=== PATIENT | female | born 1965 | race Native Hawaiian/Other Pacific Islander ===

== ENCOUNTER 2017-08-04 08:12 | Emergency (ER) | payer OTHER ==
[2017-08-04 08:29] VITALS: BP 141/92
[2017-08-04] MEDS ORDERED: DEXAMETHASONE 10 MG/ML VIAL PO STA (10:10)
--- NOTE | 2017-08-04 10:12 | ED Physician Documentation ---
PD HPI HEADACHE - Stated complaint Stated Complaint: MIGRAINE/NEW MED - Chief complaint Chief Complaint: General - History obtained from History obtained from: Patient, Family - History of Present Illness Timing - onset: Today Timing - onset during: Rest Timing - duration: Hours Timing - details: Gradual onset, Still present Worst headache ever?: No: Worst headache ever? Location: Left Quality: Throbbing Associated symptoms: Stiff neck. No: Fever, Nausea, Vomiting, Weakness, Numbness, Syncope, Seizure, Eye pain, Vision changes Improved by: Rest, Dark room, Meds Worsened by: Light, Noise, Moving Contributing factors: No: Anticoagulated Similar symptoms before: Diagnosis (migraine) Recently seen: Clinic - Additional information Additional information: 51-year-old female with a history of migraines has had more frequent migraines over the past month. She went into see her primary care doctor with concerns about her blood pressure and wondering if this may be an issue with why her headaches are more frequent. She did have blood pressures elevated in the 140 range and was started on lisinopril 5 mg daily. She took one dose last night and a second dose this morning. She developed worsening of her headache this morning has come to the emergency department afraid to take her Maxalt. Review of Systems Constitutional: denies: Fever Eyes: reports: Photophobia. denies: Decreased vision Ears: denies: Ear pain Nose: denies: Rhinorrhea / runny nose, Congestion Throat: denies: Sore throat Cardiac: denies: Chest pain / pressure, Palpitations Respiratory: denies: Dyspnea, Cough GI: reports: Nausea. denies: Abdominal Pain, Vomiting : denies: Dysuria, Frequency Musculoskeletal: reports: Neck pain. denies: Back pain Neurologic: reports: Headache. denies: Generalized weakness, Focal weakness, Numbness, Head injury, LOC PD PAST MEDICAL HISTORY - Past Medical History Cardiovascular: Hypertension Respiratory: None Neuro: Headache/migraine Endocrine/Autoimmune: None GI: None HEENT: None Psych: None Musculoskeletal: None Derm: None - Present Medications Home Medications: Ambulatory Orders Medication Instructions Recorded Confirmed Lisinopril 1 tab PO DAILY 08/04/17 08/04/17 Rizatriptan Benzoate [Rizatriptan] 08/04/17 - Allergies Allergies/Adverse Reactions: Allergies Allergy/AdvReac Type Severity Reaction Status Date / Time No Known Drug Allergies Allergy Verified 08/04/17 08:29 - Social History Does the pt smoke?: No Smoking Status: Never smoker Does the pt drink ETOH?: Yes Does the pt have substance abuse?: No - Immunizations Immunizations are current?: Yes - POLST Patient has POLST: No PD ED PE NORMAL - Vitals Vital signs reviewed: Yes (hypertensive) - General General: No acute distress, Well developed/nourished - HEENT HEENT: Atraumatic, PERRL, EOMI, Ears normal, Moist mucous membranes, Pharynx benign, Dentition benign - Neck Neck: Supple, no meningeal sign, No bony TTP, Other (There is tenderness to the insertion of the trapezius to the occiput. ) - Cardiac Cardiac: RRR, No murmur - Respiratory Respiratory: No respiratory distress, Clear bilaterally - Abdomen Abdomen: Soft, Non tender - Back Back: No CVA TTP, No spinal TTP - Derm Derm: Normal color, Warm and dry, No rash - Extremities Extremities: No deformity, No edema - Neuro Neuro: No motor deficit, No sensory deficit - Psych Psych: Normal mood, Normal affect Results - Vitals Vitals: Vital Signs - 24 hr 08/04/17 08:26 Temperature 36.0 C L Heart Rate 79 Respiratory 16 Rate Blood Pressure 141/92 H O2 Saturation 100 Oxygen O2 Source Room air PD MEDICAL DECISION MAKING - ED course Complexity details: reviewed results, re-evaluated patient, considered differential, d/w patient ED course: 51-year-old female with history of migraine headaches as a migraine again today she has been having more frequent migraines And has started medication for blood pressure. It appears she does not tolerate this medicine as it appeared to trigger a headache. Here in the emergency department she is given her Maxalt and a dose of dexamethasone. I have encouraged the patient to try all measures to improve her blood pressure without medication. Departure - Departure Disposition: 01 Home, Self Care Clinical Impression: Migraine Qualifiers: Migraine type: with aura Status migrainosus presence: with status migrainosus Intractability: not intractable Qualified Code(s): G43.101 - Migraine with aura , not intractable, with status migrainosus Condition: Stable Instructions: ED Headache Migraine Follow-Up: KARINE LARKIN [Primary Care Provider] - Comments: It is okay today to discontinue the use of the lisinopril. Follow-up with your primary care doctor about further control of your blood pressure. Forms: Activity restrictions
[2017-08-04] MEDS ORDERED: DEXAMETHASONE 10 MG/ML VIAL ONE (10:20)
[2017-08-04] MEDS ORDERED: CHERRY SYRUP 10 ML UDC PO ONE (10:21)
== END 2017-08-04 11:03 | disposition home or self-care (01) ==
LOC: ED 08:12
DX: G43.101 Migraine with aura, not intractable, with status migrainosus (principal); I10 Essential (primary) hypertension
CPT/HCPCS: 99283; 99284; A9270

== ENCOUNTER 2018-02-22 15:28 | Emergency (ER) | payer OTHER ==
[2018-02-22 15:34] VITALS: BP 144/70
--- NOTE | 2018-02-22 16:57 | ED Physician Documentation ---
PD HPI HEADACHE - Stated complaint Stated Complaint: H/A,EYE REDNESS - Chief complaint Chief Complaint: Neuro - History obtained from History obtained from: Patient - History of Present Illness Timing - onset: Today (onset this morning of left sided headache. [place] similar to migraine type ones she gets occasionally. Washed her face and when looked up in mirror, noted redness of the left eye. Concerned for other cause for headache. Tried to see PCP but could not get appt.) Timing - onset during: Sleep, Rest Timing - details: Abrupt onset, Still present Worst headache ever?: No: Worst headache ever? (feeling similar to migraines she gets, but had not had blood in eye related to it before.) Location: Left Quality: Throbbing, Aching Associated symptoms: No: Fever, Stiff neck, Nausea, Vomiting Contributing factors: No: Anticoagulated, Hypertension, Recent illness Review of Systems Constitutional: denies: Fever, Chills, Myalgias Eyes: reports: Photophobia. denies: Loss of vision, Decreased vision Ears: denies: Ear pain Nose: denies: Rhinorrhea / runny nose, Congestion Throat: denies: Sore throat Cardiac: denies: Chest pain / pressure, Palpitations Respiratory: denies: Dyspnea, Cough GI: denies: Nausea, Vomiting, Diarrhea Skin: denies: Rash, Lesions PD PAST MEDICAL HISTORY - Past Medical History Cardiovascular: Hypertension Respiratory: None Neuro: Headache/migraine Endocrine/Autoimmune: None GI: None HEENT: None Psych: None Musculoskeletal: None Derm: None - Present Medications Home Medications: Ambulatory Orders Medication Instructions Recorded Confirmed No Known Home Medications [No 02/22/18 02/22/18 Known Home Medications] - Allergies Allergies/Adverse Reactions: Allergies Allergy/AdvReac Type Severity Reaction Status Date / Time lisinopril Allergy Unknown Verified 02/22/18 15:35 - Social History Does the pt smoke?: No Smoking Status: Never smoker Does the pt drink ETOH?: Yes Does the pt have substance abuse?: No - Immunizations Immunizations are current?: Yes - POLST Patient has POLST: No PD ED PE NORMAL - Vitals Vital signs reviewed: Yes - General General: Alert and oriented X 3, Well developed/nourished - HEENT HEENT: Atraumatic, PERRL, EOMI, Ears normal, Moist mucous membranes, Pharynx benign - Neck Neck: Supple, no meningeal sign, No adenopathy - Respiratory Respiratory: No respiratory distress, Clear bilaterally - Abdomen Abdomen: Soft, Non tender - Back Back: No CVA TTP - Derm Derm: Normal color, Warm and dry, No rash - Extremities Extremities: No tenderness to palpate, Normal ROM s pain, No edema, No calf tenderness / cord - Neuro Neuro: Alert and oriented X 3, autocad designer 2-12 intact, No motor deficit, No sensory deficit, Normal speech, Other PD ED PE EXPANDED - Eyes Eyes: Subconj hemorrhage (small one), Anterior chambers clear, Normal fundi. No : Corneal FB, Fluorescein uptake Results - Vitals Vitals: Oxygen O2 Source Room air PD MEDICAL DECISION MAKING - ED course Complexity details: considered differential (small hemorrhage subconj without dye uptake nor visible vesicles. Left headache is c/w her prior migraines. No rash nor sores on face. ), d/w patient Departure - Departure Disposition: 01 Home, Self Care Clinical Impression: Left-sided headache Subconjunctival hemorrhage Qualifiers: Laterality: left Qualified Code(s): H11.32 - Conjunctival hemorrhage, left eye Condition: Stable Record reviewed to determine appropriate education?: Yes Instructions: ED Headache Migraine, ED Eye Injury Subconj Hemorrhage Comments: The broken blood vessel in the eye does not look to have a serious cause. It should resolve over several days or so. The headache presumably is a migraine and treated with her typical migraine medicines. Recheck if other symptoms develop. Regarding the eye, recheck if any feeling of foreign body, discharge, eye pain. Forms: Activity restrictions Discharge Date/Time: 02/22/18 17:45
[2018-02-22] MEDS ORDERED: ACETAMINOPHEN 325 MG TABLET PO STA (17:20)
[2018-02-22] MEDS ORDERED: IBUPROFEN 600 MG TABLET PO STA (17:20)
== END 2018-02-22 17:45 | disposition home or self-care (01) ==
LOC: ED 15:28
DX: R51 Headache (principal); H11.32 Conjunctival hemorrhage, left eye; I10 Essential (primary) hypertension
CPT/HCPCS: 99282; 99283; A9270